=== PATIENT | male | born 1985 | race Caucasian/White ===

== ENCOUNTER 2021-08-01 19:10 | Inpatient (IN) | payer SELFPAY ==
[~2021-08-01] VITALS: Ht 170.2 cm; Wt 95.9 kg
[2021-08-01] MEDS ORDERED: MORPHINE SULFATE 4 MG/ML CPJ (NOT FOR IM USE) IV STA (22:05)
[2021-08-01] MEDS ORDERED: SODIUM CHLORIDE 0.9% 1,000 ML IV ONE (22:15)
[2021-08-01 22:21] LABS: HEMATOCRIT. 38.3 % (42.0-52.0); HEMOGLOBIN. 13.6 g/dL (14.0-18.0); MEAN CORPUSCULAR VOLUME 87.4 fL (80.0-94.0); MEAN PLATELET VOLUME 8.2 fl (7.4-10.4); PLATELET 236 x1000/uL (130-400); RED BLOOD CELL COUNT 4.39 mill/uL (4.7-6.1); RED CELL DISTRIBUTION WIDTH 12.7 % (11.6-14.6)
[2021-08-01 22:24] LABS: CHLORIDE 103 mEq/L (98-107)
[2021-08-01 22:52] LABS: PLATELET ESTIMATE NORMAL
[2021-08-02 00:39] LABS: CLARITY URINE CLEAR (CLEAR); COLOR URINE DK YELLOW (YELLOW); KETONES URINE 3+ (NEGATIVE); LEUKOCYTE ESTERASE URINE NEGATIVE (NEGATIVE); NITRITE URINE NEGATIVE (NEGATIVE); OCCULT BLOOD URINE 2+ (NEGATIVE); PROTEIN URINE TRACE (NEGATIVE); SPECIFIC GRAVITY URINE 1.014 (1.005-1.030); UROBILINOGEN URINE 0.2 E.U./dL (0.2-1.0)
[2021-08-02] MEDS ORDERED: METRONIDAZOLE 500 MG PREMIX 100 ML IV ONE (01:45)
[2021-08-02] MEDS ORDERED: CEFTRIAXONE 1 G PREMIX 50 ML IV ONE (01:45)
[2021-08-02] MEDS ORDERED: SODIUM CHLORIDE 0.9% 1,000 ML IV ONE (02:00)
[2021-08-02] MEDS ORDERED: METRONIDAZOLE 500MG TABLET PO SCH (02:00)
[2021-08-02] MEDS: MORPHINE SULFATE 4 MG/ML CPJ (NOT FOR IM USE) IV PRN ×2 (04:30→08:31)
[2021-08-02] MEDS ORDERED: IOHEXOL-300 100 ML BOTTLE ONE (06:31)
[2021-08-02] MEDS ORDERED: ONDANSETRON HCL 4MG/2ML INJ IV PRN (08:15)
[2021-08-02] MEDS ORDERED: SODIUM CHLORIDE 0.9% 1,000 ML IV SCH (08:15)
[2021-08-02] MEDS ORDERED: IPRATROPIUM/ALBUTEROL 0.5-3(2.5)MG/3ML NEB HHN PRN (08:15)
[2021-08-02] MEDS ORDERED: HYDRALAZINE 20MG/ML VIAL IV PRN (08:15)
[2021-08-02] MEDS: ENOXAPARIN 40MG/0.4ML SYR SUBCUT SCH (10:18)
[2021-08-02] MEDS: MORPHINE SULFATE 2 MG/ML CPJ (NOT FOR IM USE) IV PRN ×3 (12:10→21:28)
[2021-08-02 12:34] LABS: CHLORIDE 104 mEq/L (98-107)
[2021-08-02 12:40] LABS: HEMATOCRIT. 37.4 % (42.0-52.0); MEAN CORPUSCULAR HEMOGLOBIN 30.6 pg (28.0-32.0); MEAN CORPUSCULAR VOLUME 87.9 fL (80.0-94.0); MEAN PLATELET VOLUME 8.7 fl (7.4-10.4); PLATELET 233 x1000/uL (130-400); RED BLOOD CELL COUNT 4.25 mill/uL (4.7-6.1); RED CELL DISTRIBUTION WIDTH 12.6 % (11.6-14.6)
[2021-08-02 12:42] LABS: LDL CHOLESTEROL 57 mg/dL (5-100)
[2021-08-02 12:44] LABS: HDL CHOLESTEROL 31 mg/dL (40-59)
[2021-08-02 13:12] LABS: PLATELET ESTIMATE NORMAL
[2021-08-02] MEDS: DEXT 5%/0.9% NACL 1,000 ML IV SCH ×2 (13:15→22:21)
[2021-08-02] MEDS ORDERED: METRONIDAZOLE 500 MG PREMIX 100 ML IV SCH (14:00)
[2021-08-02] MEDS: PIPERACILLIN/TAZOBACTAM 3.375 G in DEXTROSE 5% WATER 50 ML IV SCH ×2 (14:21→22:39)
[2021-08-02 16:34] LABS: CREATINE KINASE 65 IU/L (39-308)
[2021-08-02 16:36] LABS: CREATINE KINASE MB FRACTION < 1.0 ng/mL (0.5-3.6)
[2021-08-02] MEDS ORDERED: CEFTRIAXONE 1 G PREMIX 50 ML IV SCH (17:00)
[2021-08-02 21:05] VITALS: BP 141/78
[2021-08-03] VITALS: BP 118/71
[2021-08-03 04:00] VITALS: BP 116/78
[2021-08-03] MEDS: PIPERACILLIN/TAZOBACTAM 3.375 G in DEXTROSE 5% WATER 50 ML IV SCH ×3 (05:21→21:21)
[2021-08-03] MEDS: MORPHINE SULFATE 2 MG/ML CPJ (NOT FOR IM USE) IV PRN (06:33)
[2021-08-03] MEDS: DEXT 5%/0.9% NACL 1,000 ML IV SCH ×2 (06:47→16:33)
[2021-08-03] MEDS ORDERED: AMLO10TA80 MT (07:05)
[2021-08-03] MEDS ORDERED: LEVO50TA8 MT (07:05)
[2021-08-03 08:00] VITALS: BP 140/87
[2021-08-03] MEDS: ENOXAPARIN 40MG/0.4ML SYR SUBCUT SCH (09:31)
[2021-08-03 09:34] LABS: CHLORIDE 106 mEq/L (98-107)
[2021-08-03 09:35] LABS: HEMATOCRIT. 34.7 % (42.0-52.0); HEMOGLOBIN. 12.4 g/dL (14.0-18.0); MEAN CORPUSCULAR HEMOGLOBIN 31.2 pg (28.0-32.0); MEAN CORPUSCULAR VOLUME 87.4 fL (80.0-94.0); MEAN PLATELET VOLUME 8.7 fl (7.4-10.4); PLATELET 232 x1000/uL (130-400); RED BLOOD CELL COUNT 3.97 mill/uL (4.7-6.1); RED CELL DISTRIBUTION WIDTH 12.8 % (11.6-14.6)
[2021-08-03 09:44] LABS: CREATINE KINASE 39 IU/L (39-308)
[2021-08-03 09:46] LABS: CREATINE KINASE MB FRACTION < 1.0 ng/mL (0.5-3.6)
[2021-08-03] MEDS ORDERED: NALOXONE HCL 0.4MG/ML VIAL IV PRN (10:45)
[2021-08-03] MEDS: LEVOTHYROXINE SODIUM 50MCG TABLET PO SCH (11:00)
[2021-08-03 11:52] LABS: PLATELET ESTIMATE NORMAL
[2021-08-03 16:00] VITALS: BP 133/90
[2021-08-03 20:00] VITALS: BP 120/77
[2021-08-03] MEDS: ENOXAPARIN 30MG/0.3ML SYR SUBCUT SCH (21:21)
[2021-08-04] VITALS: BP 111/70
[2021-08-04] MEDS: DEXT 5%/0.9% NACL 1,000 ML IV SCH ×3 (02:00→19:52)
[2021-08-04 03:58] VITALS: BP 122/71
[2021-08-04 06:15] LABS: CHLORIDE 107 mEq/L (98-107)
[2021-08-04] MEDS: LEVOTHYROXINE SODIUM 50MCG TABLET PO SCH (06:21)
[2021-08-04] MEDS: PIPERACILLIN/TAZOBACTAM 3.375 G in DEXTROSE 5% WATER 50 ML IV SCH ×3 (06:21→21:33)
[2021-08-04 07:17] LABS: BASOPHILS % 0.8 % (0.0-2.0); EOSINOPHILS % 1.1 % (0.0-5.0); HEMATOCRIT. 34.5 % (42.0-52.0); LYMPHOCYTES % 14.4 % (20.0-50.0); MEAN CORPUSCULAR HEMOGLOBIN 30.7 pg (28.0-32.0); MEAN CORPUSCULAR VOLUME 88.1 fL (80.0-94.0); MEAN PLATELET VOLUME 8.9 fl (7.4-10.4); NEUTROPHILS % 74.7 % (40.0-76.0); PLATELET 225 x1000/uL (130-400); RED BLOOD CELL COUNT 3.92 mill/uL (4.7-6.1); RED CELL DISTRIBUTION WIDTH 12.9 % (11.6-14.6)
[2021-08-04 07:50] VITALS: BP 142/89
[2021-08-04] MEDS: ENOXAPARIN 30MG/0.3ML SYR SUBCUT SCH ×2 (08:49→21:33)
[2021-08-04 10:07] LABS: *AMPHETAMINES SCREEN URINE NEGATIVE (NEGATIVE); *BARBITURATES SCREEN URINE NEGATIVE (NEGATIVE); *BENZODIAZEPINES SCREEN URINE NEGATIVE (NEGATIVE)
[2021-08-04 10:09] LABS: *COCAINE SCREEN URINE NEGATIVE (NEGATIVE); CANNABINOID URINE SCREEN PRESUMTIVE POSITIVE (NEGATIVE); METHADONE URINE SCREEN NEGATIVE (NEGATIVE); OPIATES URINE SCREEN NEGATIVE (NEGATIVE); PHENCYCLIDINE URINE SCREEN NEGATIVE (NEGATIVE)
[2021-08-04 11:48] VITALS: BP 140/88
[2021-08-04 15:47] VITALS: BP 125/87
[2021-08-04 20:00] VITALS: BP 128/80
[2021-08-05] VITALS: BP 123/89
[2021-08-05] MEDS: DEXT 5%/0.9% NACL 1,000 ML IV SCH ×2 (03:57→21:39)
[2021-08-05 04:00] VITALS: BP 154/87
[2021-08-05] MEDS: LEVOTHYROXINE SODIUM 50MCG TABLET PO SCH (06:27)
[2021-08-05] MEDS: PIPERACILLIN/TAZOBACTAM 3.375 G in DEXTROSE 5% WATER 50 ML IV SCH ×3 (06:27→21:40)
[2021-08-05 06:58] LABS: BASOPHILS % 0.8 % (0.0-2.0); EOSINOPHILS % 2.2 % (0.0-5.0); HEMATOCRIT. 35.4 % (42.0-52.0); HEMOGLOBIN. 12.7 g/dL (14.0-18.0); LYMPHOCYTES % 22.4 % (20.0-50.0); MEAN CORPUSCULAR HEMOGLOBIN 30.9 pg (28.0-32.0); MEAN CORPUSCULAR VOLUME 86.4 fL (80.0-94.0); MEAN PLATELET VOLUME 9.1 fl (7.4-10.4); MONOCYTES % 7.9 % (2.0-8.0); NEUTROPHILS % 66.7 % (40.0-76.0); PLATELET 263 x1000/uL (130-400); RED CELL DISTRIBUTION WIDTH 12.8 % (11.6-14.6)
[2021-08-05 07:11] LABS: CHLORIDE 107 mEq/L (98-107)
[2021-08-05 08:29] VITALS: BP 128/82
[2021-08-05] MEDS: ENOXAPARIN 30MG/0.3ML SYR SUBCUT SCH ×2 (08:44→21:39)
[2021-08-05 11:43] VITALS: BP 136/92
[2021-08-05 16:00] VITALS: BP 126/78
[2021-08-05 20:00] VITALS: BP 124/84
[2021-08-06] VITALS: BP 129/91
[2021-08-06 04:00] VITALS: BP 140/99
[2021-08-06] MEDS: PIPERACILLIN/TAZOBACTAM 3.375 G in DEXTROSE 5% WATER 50 ML IV SCH ×2 (05:25→14:07)
[2021-08-06] MEDS: DEXT 5%/0.9% NACL 1,000 ML IV SCH ×2 (05:25→08:24)
[2021-08-06] MEDS: LEVOTHYROXINE SODIUM 50MCG TABLET PO SCH (06:33)
[2021-08-06 06:41] LABS: BASOPHILS % 0.8 % (0.0-2.0); EOSINOPHILS % 1.8 % (0.0-5.0); HEMOGLOBIN. 13.3 g/dL (14.0-18.0); LYMPHOCYTES % 23.4 % (20.0-50.0); MEAN CORPUSCULAR HEMOGLOBIN 30.4 pg (28.0-32.0); MEAN CORPUSCULAR VOLUME 87.2 fL (80.0-94.0); MEAN PLATELET VOLUME 8.9 fl (7.4-10.4); PLATELET 296 x1000/uL (130-400); RED BLOOD CELL COUNT 4.36 mill/uL (4.7-6.1); RED CELL DISTRIBUTION WIDTH 12.7 % (11.6-14.6)
[2021-08-06 08:00] VITALS: BP 130/90
[2021-08-06] MEDS: ENOXAPARIN 30MG/0.3ML SYR SUBCUT SCH (08:25)
[2021-08-06 09:52] LABS: CHLORIDE 110 mEq/L (98-107)
[2021-08-06 12:00] VITALS: BP 136/102
[2021-08-06] MEDS ORDERED: LEVO500T89 MT (13:45)
[2021-08-06 14:51] VITALS: BP 136/102
== END 2021-08-06 16:36 | disposition home or self-care (01) | DRG 720 ==
LOC: ER 19:10 → MICUSO 08-02 01:50 → 6WST 08-02 20:20
PROVIDERS: ADMIT Internal Medicine; ATTEND Internal Medicine
DX: A41.9 Sepsis, unspecified organism (principal); E88.09 Other disorders of plasma-protein metabolism, not elsewhere classified; K57.20 Diverticulitis of large intestine with perforation and abscess without bleeding; D64.9 Anemia, unspecified; I10 Essential (primary) hypertension; E05.90 Thyrotoxicosis, unspecified without thyrotoxic crisis or storm; K80.20 Calculus of gallbladder without cholecystitis without obstruction; Z20.822 Contact with and (suspected) exposure to COVID-19
CPT/HCPCS: 36415; 74177; 80048; 80053; 80061; 80305; 81003; 82550; 82553; 83036; 83605; 83735; 84145; 84443; 84484; 85025; 87426; 93970; 99291; J0696; J1650; J2270; J2543; J3490; J7030; J7042; J7060; Q9967